=== PATIENT | female | born 1960 | race Caucasian/White ===

== ENCOUNTER 2019-06-26 18:34 | Emergency (ER) | payer MEDICARE ==
[~2019-06-26] VITALS: Ht 154.9 cm; Wt 60.2 kg
[2019-06-26 23:29] VITALS: BP 111/75
== END 2019-06-27 00:23 | disposition home or self-care (01) ==
LOC: ED 22:13
DX: R42 Dizziness and giddiness (principal); R51 Headache; R11.0 Nausea; G89.29 Other chronic pain
CPT/HCPCS: 36415; 70450; 70496; 70498; 80048; 82040; 84484; 85025; 93005; 99284; Q9967

== ENCOUNTER 2021-02-18 11:38 | Inpatient (IN) | payer MEDICARE ==
[~2021-02-18] VITALS: Ht 154.9 cm; Wt 65.2 kg
[~2021-02-18 11:38] MED LIST: AMIT75TA PO; AMOX-291 PO; GABA300C10 PO; HYDR-3241 PO; IBUP-1223 PO; LEVO100T PO; LEVO150T5 PO; METH-640 PO; OMEP-110 PO; OXYC5TAB98 PO
[2021-02-18] MEDS ORDERED: SODIUM CHLORIDE FLUSH 10ML SYR IVF ONE (12:00)
[2021-02-18] MEDS ORDERED: SODIUM CHLORIDE 0.9% 1,000ML IVBOLUS ONE (12:00)
--- NOTE | 2021-02-18 12:00 | NUR ---
PATIENT BIB EMS FOR CONFUSION TODAY. NOTED TO HAVE FEVER EN ROUTE AND GIVEN 1 GRAM TYLENOL PO BY EMS. PER EMS, STATED THAT PATIENT HAD A SIMILAR EPISODE ONE MONTH AGO, BUT THE OUTCOME AND CAUSE WERE UNKNOWN.
--- NOTE | 2021-02-18 12:14 | NUR ---
REPORT FROM DMITRI GAXIOLA. THIS IS A 60 YR OLD FEMALE WITH HX OF CHRONIC BACK PAIN. PT PRESENTS TO ER AXOX1 AND ON O2 AT 15 LPM VIA NON REBREATHER MASK. PT IS TAKEN OFF OF MASK AND PLACED ON NC AT 5 LPM TO ACHIEVE O2 OF 92-93%. CARDIAC, NIBP, AND O2 MONITORING IN PLACE. LABS AND XRAY COMPLETED AT THIS TIME.
--- NOTE | 2021-02-18 12:20 | NUR ---
200 ML ON NS GIVEN ORDER CHECKER PACKER PROCESSER BY EMS. CONTINUATION OF EMS LITER AT THIS TIME. Addendum: 02/18/21 at 1223 by CONNIE 200 ML OF LR GIVEN ORDER CHECKER PACKER PROCESSER
--- NOTE | 2021-02-18 12:21 | NUR ---
1000MG OF TYLENOL GIVEN BY EMS POWER SWITCHBOARD OPERATOR AWARE.
[2021-02-18 12:27] LABS: MEAN CORPUSCULAR HEMOGLOBIN 26.9 pg (27.0-34.8); PLATELET COUNT 286 x10^3/uL (130-400); RED BLOOD COUNT 4.47 x10^6/uL (3.82-5.3); RED CELL DISTRIBUTION WIDTH 17.7 % (9.6-15.2)
[2021-02-18] MEDS ORDERED: ACETAMINOPHEN 325 MG TABLET PO ONE (12:30)
[2021-02-18 12:31] LABS: ALBUMIN 3.7 g/dL (3.4-5.0); ANION GAP 4 mmol/L (5-15); CALCIUM 7.9 mg/dL (8.5-10.1); CHLORIDE 110 mmol/L (98-107)
--- NOTE | 2021-02-18 12:36 | NUR ---
TASK RN: STRAIGHT CATH URINE OBTAINED W/O INCIDENT.
[2021-02-18 12:37] LABS: ALANINE AMINOTRANSFERASE 18 U/L (12-78); ALKALINE PHOSPHATASE 131 U/L (45-117); BILIRUBIN,TOTAL 0.4 mg/dL (0.2-1.0); CREATININE 1.08 mg/dL (0.55-1.02); TOTAL PROTEIN 7.1 g/dL (6.4-8.2); TROPONIN I < 0.015 ng/mL (0.000-0.045)
[2021-02-18 12:44] LABS: MD YES
[2021-02-18 12:45] LABS: BANDS%(MANUAL) 13 % (0-7); LYMPH#(MANUAL) 0.84 x10^3/uL (1-3.4); LYMPHS% (MANUAL) 4 % (22-44); MONOS#(MANUAL) 1.05 x10^3/uL (0.3-2.7); MONOS% (MANUAL) 5 % (2-9); SEGS% (MANUAL) 78 % (42-75)
[2021-02-18 12:46] LABS: ANISOCYTOSIS 1+; BAND#(MANUAL) 2.72 x10^3/uL; OVALOCYTES 1+
[2021-02-18 12:47] LABS: <PLATELET ESTIMATE> ADEQUATE; <PLT MORPHOLOGY> NORMAL PLT MORPH
[2021-02-18 12:57] LABS: FREE T4 (FREE THYROXINE) 0.29 ng/dL (0.76-1.46)
--- NOTE | 2021-02-18 13:02 | NUR ---
BREAK RN: PT SITTING UP ON GURNEY WATCHING TV. RESP EVEN AND UNLABORED. PT CONNECTED TO MONITORING. CALL LIGHT IN REACH.
[2021-02-18 13:12] LABS: MICROSCOPIC NOT IND
[2021-02-18] MEDS ORDERED: PIPERACILLIN/TAZO/PMX 3.375GM 50 ML ONE (13:19)
--- NOTE | 2021-02-18 13:20 | NUR ---
BREAK RN: ALL RESULTS ARE BACK AT THIS TIME. CHART UP FOR RECHECK.
--- NOTE | 2021-02-18 13:26 | NUR ---
BREAK RN: IV ABX STARTED PER JAN. 2 SETS BLOOD CX COLLECTED PRIOR TO ADMIN.
[2021-02-18] MEDS ORDERED: PIPERACILLIN/TAZO/PMX 3.375GM 50 ML IV ONE (13:30)
--- NOTE | 2021-02-18 13:30 | NUR ---
BREAK RN: REPORT GIVEN TO PRIMARY RN.
--- NOTE | 2021-02-18 13:52 | NUR ---
COMPLETION OF EMS 1 LITER OF LR DONE. INITIATION OF 1 LITER NS STARTED.
[2021-02-18] MEDS ORDERED: VANCOMYCIN PER PHARMACY MC PRN ×2 (14:00→15:00)
[2021-02-18] MEDS ORDERED: VANCOMYCIN 1,600 MG in SODIUM CHLORIDE 0.9% 250 ML IV ONE (14:00)
--- NOTE | 2021-02-18 14:10 | NUR ---
VANCOMYCIN STARTED. PT RESTING AND IN NO DISTRESS. PT REQUESTING FOOD AND DRINK. WILL CHECK WITH ERP REGARDING FEEDING PATIENT.
--- NOTE | 2021-02-18 14:13 | NUR ---
PT TO CT AT THIS TIME.
[2021-02-18] MEDS ORDERED: OMNIPAQUE 350 MG/ML, 75ML BOTTLE ONE (14:41)
[2021-02-18] MEDS ORDERED: BISACODYL 10 MG SUPP PR PRN (15:00)
[2021-02-18] MEDS ORDERED: PHARMACY MAY ADJ FOR RENAL FX MC PRN (15:00)
[2021-02-18] MEDS ORDERED: ENOXAPARIN 40 MG/0.4 ML SQ SCH (15:00)
[2021-02-18] MEDS ORDERED: PHARMACOKINETIC MONITORING MC PRN (15:30)
[2021-02-18] MEDS ORDERED: PHARMACOKINETIC CONSULTATION MC ONE (15:30)
[2021-02-18 15:41] LABS: INTERNATIONAL NORMALIZED RATIO 1.02 (0.93-1.1); PROTHROMBIN TIME 10.9 Seconds (9.6-11.5)
[2021-02-18 15:46] LABS: TROPONIN I < 0.015 ng/mL (0.000-0.045)
[2021-02-18] MEDS ORDERED: HYDR-3241 PO (15:47)
[2021-02-18 16:14] VITALS: BP 121/82
[2021-02-18] MEDS ORDERED: HEPARIN 5,000 UNITS/ML, 1ML IV PRN (17:30)
[2021-02-18] MEDS ORDERED: HEPARIN 5,000 UNITS/ML, 1ML IV ONE (17:30)
[2021-02-18] MEDS: HEPARIN 25,000 UNITS/250ML PMX 250 ML IV PRN (18:26)
[2021-02-18 19:23] VITALS: BP 125/77
[2021-02-18 21:01] LABS: TROPONIN I < 0.015 ng/mL (0.000-0.045)
[2021-02-18] MEDS: ACETAMINOPHEN 325 MG TABLET PO PRN (22:09)
[2021-02-18] MEDS: PIPERACILLIN/TAZO/PMX 3.375GM 50 ML IV SCH (22:11)
[2021-02-19 01:18] VITALS: BP 132/78
[2021-02-19] MEDS: PIPERACILLIN/TAZO/PMX 3.375GM 50 ML IV SCH ×3 (06:25→19:36)
[2021-02-19] MEDS: ACETAMINOPHEN 325 MG TABLET PO PRN (06:25)
[2021-02-19 07:34] VITALS: BP 127/85
[2021-02-19 08:22] LABS: MEAN CORPUSCULAR HGB CONC 31.8 g/dL (32.4-35.8); MEAN PLATELET VOLUME 7.8 fL (7.4-10.4); PLATELET COUNT 201 x10^3/uL (130-400); RED BLOOD COUNT 4.37 x10^6/uL (3.82-5.3); RED CELL DISTRIBUTION WIDTH 17.4 % (9.6-15.2)
[2021-02-19 08:34] LABS: ALANINE AMINOTRANSFERASE 20 U/L (12-78); ALBUMIN 3.2 g/dL (3.4-5.0); ANION GAP 7 mmol/L (5-15); CHLORIDE 110 mmol/L (98-107); CREATININE 0.86 mg/dL (0.55-1.02)
[2021-02-19 08:45] LABS: ALKALINE PHOSPHATASE 123 U/L (45-117); BILIRUBIN,TOTAL 0.3 mg/dL (0.2-1.0); TOTAL PROTEIN 6.7 g/dL (6.4-8.2)
[2021-02-19] MEDS ORDERED: LEVOTHYROXINE 100 MCG TABLET PO SCH (09:00)
[2021-02-19] MEDS: METHOCARBAMOL 750 MG TABLET PO SCH (09:18)
[2021-02-19] MEDS: GABAPENTIN 300 MG CAPSULE PO SCH (09:18)
[2021-02-19] MEDS: OMEPRAZOLE 20 MG CAPSULE.DR PO SCH ×2 (09:18→16:47)
[2021-02-19 09:56] LABS: MD YES
[2021-02-19 09:58] LABS: BAND#(MANUAL) 0.98 x10^3/uL; BANDS%(MANUAL) 5 % (0-7); BASOS% (MANUAL) 1 % (0-1); EOS#(MANUAL) 1.37 x10^3/uL (0.0-0.4); EOS% (MANUAL) 7 % (1-7); LYMPH#(MANUAL) 2.73 x10^3/uL (1-3.4); LYMPHS% (MANUAL) 14 % (22-44); MONOS#(MANUAL) 1.17 x10^3/uL (0.3-2.7); MONOS% (MANUAL) 6 % (2-9); SEG#(MANUAL) 13.07 x10^3/uL (1.8-6.8); SEGS% (MANUAL) 67 % (42-75)
[2021-02-19 10:02] LABS: <PLATELET ESTIMATE> ADEQUATE; <PLT MORPHOLOGY> NORMAL PLT MORPH; ANISOCYTOSIS 1+; OVALOCYTES 1+
[2021-02-19] MEDS: AMITRIPTYLINE 75 MG TABLET PO SCH ×3 (12:00→21:04)
[2021-02-19] MEDS: LEVOTHYROXINE 100 MCG INJ IVPush SCH (12:00)
[2021-02-19] MEDS ORDERED: POTASSIUM CHLORIDE 40 MEQ in SODIUM CHLORIDE 0.9% 500 ML IV ONE (12:30)
[2021-02-19] MEDS: VANCOMYCIN 1,200 MG in SODIUM CHLORIDE 0.9% 250 ML IV SCH (12:38)
[2021-02-19 12:50] VITALS: BP 115/76
[2021-02-19 18:24] VITALS: BP 129/85
[2021-02-19] MEDS: HEPARIN 25,000 UNITS/250ML PMX 250 ML IV PRN (23:10)
[2021-02-20 01:37] VITALS: BP 131/82
[2021-02-20] MEDS: PIPERACILLIN/TAZO/PMX 3.375GM 50 ML IV SCH ×3 (03:30→19:37)
[2021-02-20] MEDS: AMITRIPTYLINE 75 MG TABLET PO SCH ×3 (04:56→19:37)
[2021-02-20] MEDS: OMEPRAZOLE 20 MG CAPSULE.DR PO SCH ×2 (04:56→16:27)
[2021-02-20 05:26] LABS: ANION GAP 4 mmol/L (5-15); CALCIUM 7.9 mg/dL (8.5-10.1); CHLORIDE 114 mmol/L (98-107); CREATININE 0.93 mg/dL (0.55-1.02)
[2021-02-20 05:27] LABS: BASOPHILS % (AUTO) 1 % (0-1); EOSINOPHILS % (AUTO) 4 % (1-7); LYMPHOCYTES % (AUTO) 17 % (22-44); MEAN CORPUSCULAR HEMOGLOBIN 27.4 pg (27.0-34.8); MEAN CORPUSCULAR HGB CONC 32.1 g/dL (32.4-35.8); MEAN PLATELET VOLUME 7.7 fL (7.4-10.4); MONOCYTES % (AUTO) 5 % (2-9); NEUTROPHILS % (AUTO) 74 % (42-75); PLATELET COUNT 205 x10^3/uL (130-400); RED BLOOD COUNT 3.98 x10^6/uL (3.82-5.3); RED CELL DISTRIBUTION WIDTH 17.5 % (9.6-15.2)
[2021-02-20 05:33] LABS: MD NO
[2021-02-20 07:39] VITALS: BP 143/99
[2021-02-20] MEDS: LEVOTHYROXINE 100 MCG INJ IVPush SCH (08:17)
[2021-02-20] MEDS: VANCOMYCIN 1,200 MG in SODIUM CHLORIDE 0.9% 250 ML IV SCH ×2 (08:18→12:56)
[2021-02-20] MEDS: METHOCARBAMOL 750 MG TABLET PO SCH (08:21)
[2021-02-20] MEDS: GABAPENTIN 300 MG CAPSULE PO SCH (08:22)
[2021-02-20] MEDS: POLYETHYLENE GLYCOL 17 GM PACKET PO PRN (08:22)
[2021-02-20] MEDS: DOCUSATE 100 MG CAPSULE PO PRN ×2 (08:22→19:45)
[2021-02-20 11:57] VITALS: BP 148/99
[2021-02-20] MEDS: RIVAROXABAN 15 MG TABLET PO SCH (16:27)
[2021-02-20] MEDS: ACETAMINOPHEN 325 MG TABLET PO PRN (19:45)
[2021-02-20 20:31] VITALS: BP 156/87
[2021-02-21 02:00] VITALS: BP 134/78
[2021-02-21] MEDS: PIPERACILLIN/TAZO/PMX 3.375GM 50 ML IV SCH ×3 (02:49→18:47)
[2021-02-21 05:00] LABS: BASOPHILS % (AUTO) 1 % (0-1); EOSINOPHILS % (AUTO) 2 % (1-7); LYMPHOCYTES % (AUTO) 17 % (22-44); MEAN CORPUSCULAR HGB CONC 31.8 g/dL (32.4-35.8); MEAN PLATELET VOLUME 7.4 fL (7.4-10.4); MONOCYTES % (AUTO) 7 % (2-9); NEUTROPHILS % (AUTO) 74 % (42-75); PLATELET COUNT 211 x10^3/uL (130-400); RED BLOOD COUNT 4.02 x10^6/uL (3.82-5.3); RED CELL DISTRIBUTION WIDTH 17.6 % (9.6-15.2)
[2021-02-21 05:08] LABS: MD NO
[2021-02-21 05:12] LABS: ANION GAP 4 mmol/L (5-15); CALCIUM 8.3 mg/dL (8.5-10.1); CHLORIDE 112 mmol/L (98-107)
[2021-02-21 05:15] LABS: CREATININE 0.81 mg/dL (0.55-1.02)
[2021-02-21] MEDS: OMEPRAZOLE 20 MG CAPSULE.DR PO SCH ×2 (06:26→16:22)
[2021-02-21 06:40] VITALS: BP 127/77
[2021-02-21] MEDS: LEVOTHYROXINE 100 MCG INJ IVPush SCH (08:01)
[2021-02-21] MEDS: RIVAROXABAN 15 MG TABLET PO SCH ×2 (08:01→16:22)
[2021-02-21] MEDS: POLYETHYLENE GLYCOL 17 GM PACKET PO PRN (08:09)
[2021-02-21] MEDS: DOCUSATE 100 MG CAPSULE PO PRN (08:09)
[2021-02-21] MEDS ORDERED: VANCOMYCIN 1,200 MG in SODIUM CHLORIDE 0.9% 250 ML IV SCH (10:30)
[2021-02-21] MEDS: ACETAMINOPHEN 325 MG TABLET PO PRN (12:18)
[2021-02-21 12:26] VITALS: BP 142/77
[2021-02-21 18:52] VITALS: BP 135/88
[2021-02-21] MEDS: AMITRIPTYLINE 75 MG TABLET PO SCH (21:54)
[2021-02-22 02:00] VITALS: BP 128/82
[2021-02-22] MEDS: PIPERACILLIN/TAZO/PMX 3.375GM 50 ML IV SCH ×3 (03:51→20:00)
[2021-02-22] MEDS: LEVOTHYROXINE 125 MCG TABLET PO SCH (06:22)
[2021-02-22] MEDS: OMEPRAZOLE 20 MG CAPSULE.DR PO SCH ×2 (06:22→16:17)
[2021-02-22 06:23] LABS: BASOPHILS % (AUTO) 1 % (0-1); EOSINOPHILS % (AUTO) 3 % (1-7); LYMPHOCYTES % (AUTO) 21 % (22-44); MEAN CORPUSCULAR HEMOGLOBIN 27.5 pg (27.0-34.8); MEAN CORPUSCULAR HGB CONC 32.9 g/dL (32.4-35.8); MEAN PLATELET VOLUME 7.6 fL (7.4-10.4); MONOCYTES % (AUTO) 6 % (2-9); NEUTROPHILS % (AUTO) 69 % (42-75); PLATELET COUNT 263 x10^3/uL (130-400); RED BLOOD COUNT 3.95 x10^6/uL (3.82-5.3); RED CELL DISTRIBUTION WIDTH 17.4 % (9.6-15.2)
[2021-02-22 06:24] LABS: MD NO
[2021-02-22 06:32] LABS: CHLORIDE 108 mmol/L (98-107)
[2021-02-22 06:39] LABS: ALANINE AMINOTRANSFERASE 15 U/L (12-78); ALBUMIN 3.1 g/dL (3.4-5.0); ALKALINE PHOSPHATASE 110 U/L (45-117); ANION GAP 4 mmol/L (5-15); BILIRUBIN,TOTAL 0.6 mg/dL (0.2-1.0); CALCIUM 8.7 mg/dL (8.5-10.1); CREATININE 0.85 mg/dL (0.55-1.02); TOTAL PROTEIN 6.8 g/dL (6.4-8.2)
[2021-02-22 07:29] VITALS: BP 110/66
[2021-02-22] MEDS: RIVAROXABAN 15 MG TABLET PO SCH ×2 (08:21→16:17)
[2021-02-22 12:56] VITALS: BP 145/92
[2021-02-22 18:30] VITALS: BP 131/85
[2021-02-22] MEDS: AMITRIPTYLINE 75 MG TABLET PO SCH (20:01)
[2021-02-23 02:00] VITALS: BP 126/82
[2021-02-23] MEDS: PIPERACILLIN/TAZO/PMX 3.375GM 50 ML IV SCH (03:06)
[2021-02-23] MEDS: LEVOTHYROXINE 125 MCG TABLET PO SCH (06:36)
[2021-02-23] MEDS: OMEPRAZOLE 20 MG CAPSULE.DR PO SCH (06:38)
[2021-02-23 07:16] VITALS: BP 123/79
[2021-02-23] MEDS: RIVAROXABAN 15 MG TABLET PO SCH (07:57)
[2021-02-23] MEDS ORDERED: RIVA20TA PO (08:50)
[2021-02-23] MEDS ORDERED: AMIT75TA PO (08:50)
[2021-02-23] MEDS ORDERED: RIVA15TA PO (08:50)
[2021-02-23] MEDS ORDERED: LEVO125T PO (08:50)
[2021-02-23] MEDS ORDERED: AMOX1TAB64 PO (08:50)
== END 2021-02-23 12:00 | disposition home or self-care (01) | DRG 871 ==
LOC: ED 13:57 → 4WST 14:00 → DCLOUNGE 02-23 11:58
PROVIDERS: ADMIT Hospitalist; ATTEND Hospitalist
PROC: 0T9B70Z Drainage of Bladder with Drainage Device, Via Natural or Artificial Opening (ICD-10-PCS; principal; 2021-02-18)
DX: A41.9 Sepsis, unspecified organism (principal); G93.41 Metabolic encephalopathy; E03.5 Myxedema coma; J96.01 Acute respiratory failure with hypoxia; I26.99 Other pulmonary embolism without acute cor pulmonale; J18.9 Pneumonia, unspecified organism; I50.33 Acute on chronic diastolic (congestive) heart failure; I80.9 Phlebitis and thrombophlebitis of unspecified site; D64.9 Anemia, unspecified; G89.4 Chronic pain syndrome; I73.9 Peripheral vascular disease, unspecified; E87.6 Hypokalemia; R13.10 Dysphagia, unspecified; Z20.822 Contact with and (suspected) exposure to COVID-19
CPT/HCPCS: 36415; 70450; 70551; 71045; 71275; 74230; 80048; 80053; 80202; 81003; 82140; 82533; 82728; 83605; 83615; 83735; 83880; 84100; 84145; 84439; 84443; 84481; 84484; 85025; 85520; 85610; 87040; 93005; 93306; 96374; 99291; G0378; J1644; J1650; J2543; J3370; J3480; Q9967; J7030; J7040; J7050; U0003

== ENCOUNTER 2021-08-02 13:11 | Outpatient (CLI) | payer MEDICARE, OTHER ==
[~2021-08-02 13:11] MED LIST changes: +AMOX1TAB64 PO; +LEVO125T PO; +RIVA15TA PO; +RIVA20TA PO
[2021-08-02] MEDS ORDERED: OMNIPAQUE 350 MG/ML, 75ML BOTTLE ONE (14:12)
[2021-08-02] MEDS ORDERED: OMNIPAQUE 350 MG/ML, 100ML BOTTLE ONE (15:41)
== END 2021-08-02 23:59 | disposition home or self-care (01) ==
LOC: CFH 13:11
PROVIDERS: ATTEND Internal Medicine Cardiovascular Disease
DX: I28.9 Disease of pulmonary vessels, unspecified (principal)
CPT/HCPCS: 71275; 82565; Q9967